=== PATIENT | female | born 1955 | race Hispanic/Latino ===

== ENCOUNTER 2023-12-08 12:47 | Outpatient (CLI) | payer MEDICARE | END 2023-12-08 12:48 | disposition home or self-care (01) | LOC: CSHMAMMO 12:47 | PROVIDERS: ATTEND Nurse Practitioner Family | DX: Z13.820 Encounter for screening for osteoporosis (principal); Z78.0 Asymptomatic menopausal state | CPT/HCPCS: 77080 ==